=== PATIENT | male | born 1985 | race Caucasian/White ===

== ENCOUNTER 2019-12-26 14:47 | Emergency (ER) | payer OTHER, BC ==
--- NOTE | 2019-12-26 15:00 | EDM.PDOC ---
ED HPI GENERAL MEDICAL PROBLEM - General Chief Complaint: Lower Extremity Injury/Pain Stated Complaint: HIT WITH A METAL POLE RIGH SIDE/HIP AREA Time Seen by Provider: 12/26/19 14:55 Source of Information: Reports: Patient, RN, RN Notes Reviewed History Limitations: Reports: No Limitations - History of Present Illness INITIAL COMMENTS - FREE TEXT/NARRATIVE: Pt presents to ER with c/o large bruise and pain to the right side abdomen and hip. Pt states he was working drilling metal pole on a drill press when the bit caught and twisted the pole hitting him in the right lower abdomen and right hip. Pt denies any other injury. Onset: Today, Sudden Duration: Constant Location: Reports: Abdomen, Lower Extremity, Right Quality: Reports: Ache Severity: Severe Improves with: Reports: None Worsens with: Reports: Movement Associated Symptoms: Reports: No Other Symptoms Right Hip Pain Score (Numeric/FACES): 10 - Related Data Allergies Allergy/AdvReac Type Severity Reaction Status Date / Time No Known Allergies Allergy Verified 12/26/19 14:57 Home Meds: Home Meds Omeprazole 20 mg PO DAILY 12/26/19 [History] Past Medical History - Past Health History Medical/Surgical History: Denies Medical/Surgical History Social & Family History - Family History Family Medical History: Noncontributory - Living Situation & Occupation Occupation: Employed Review of Systems - Review of Systems Review Of Systems: Comprehensive ROS is negative, except as noted in HPI. ED EXAM, GENERAL - Physical Exam Exam: See Below Exam Limited By: No Limitations General Appearance: Alert, WD/WN, No Apparent Distress Throat/Mouth: Normal Inspection Head: Atraumatic, Normocephalic Neck: Normal Inspection, Non-Tender, Full Range of Motion Respiratory/Chest: No Respiratory Distress, Lungs Clear, Normal Breath Sounds, No Accessory Muscle Use, Chest Non-Tender Cardiovascular: Normal Peripheral Pulses GI/Abdominal: Normal Bowel Sounds, Soft, Pelvis Stable, Other (Hematoma right lateral abdominal wall) (Male) Exam: Deferred Rectal (Males) Exam: Deferred Back Exam: Normal Inspection, Full Range of Motion, CVA Tenderness (R). No: CVA Tenderness (L), Vertebral Tenderness Extremities: Normal Range of Motion, No Pedal Edema, Normal Capillary Refill, Other (Rt hip contusion/hematoma) Neurological: Alert, Oriented, No Motor/Sensory Deficits Psychiatric: Normal Affect, Normal Mood Skin Exam: Warm, Dry, Intact Course - Vital Signs Last Recorded V/S: Last Vital Signs Temp 98.5 F 12/26/19 14:54 Pulse 74 12/26/19 14:54 Resp 18 12/26/19 14:54 BP 116/77 12/26/19 14:54 Pulse Ox 99 12/26/19 14:54 - Orders/Labs/Meds Orders: Active Orders 24 hr Category Date Time Status Peripheral IV Care [RC] . DIRECTED Care 12/26/19 15:10 Active Abdomen Pelvis w Cont [CT] Stat Exams 12/26/19 15:14 Taken Sodium Chloride 0.9% [Saline Flush] Med 12/26/19 15:07 Active 10 ml FLUSH ASDIRECTED PRN Ice Pack [Ice Therapy] [OM.PC] Routine Oth 12/26/19 15:10 Ordered Peripheral IV Insertion Adult [OM.PC] Stat Oth 12/26/19 15:08 Ordered Medication Orders Sodium Chloride (Saline Flush) 10 ml FLUSH ASDIRECTED PRN PRN Reason: Keep Vein Open Last Admin: 12/26/19 16:06 Dose: 10 ml Documented by: KYLIE Labs: Laboratory Tests 12/26/19 12/26/19 12/26/19 Range/Units 15:10 15:18 15:18 WBC 9.5 (5.0-10.0) 10^3/uL RBC 4.88 (4.6-6.2) 10^6/uL Hgb 14.5 (14.0-18.0) g/dL Hct 41.9 (40.0-54.0) % MCV 85.9 (80-100) fL MCH 29.7 (27.0-34.0) pg MCHC 34.6 (33.0-35.0) g/dL Plt Count 314 (150-450) 10^3/uL Neut % (Auto) 69.7 (42.2-75.2) % Lymph % (Auto) 22.3 (20.5-50.1) % [place] % (Auto) 6.0 (2-8) % Eos % (Auto) 1.8 (1.0-3.0) % Baso % (Auto) 0.2 (0.0-1.0) % PT 10.1 (9.0-12.0) SEC INR 1.1 (0.9-1.2) APTT 23.6 (22.0-34.0) SEC Sodium (136-145) mmol/L Potassium (3.5-5.1) mmol/L Chloride (98-107) mmol/L Carbon Dioxide (21-32) mmol/L Anion Gap (7-13) mEq/L BUN (7-18) mg/dL Creatinine (0.70-1.30) mg/dL Est Cr Clr Drug Dosing mL/min Estimated GFR (MDRD) BUN/Creatinine Ratio (No establ ref range) Glucose (74-99) mg/dL Calcium (8.5-10.1) mg/dL Total Bilirubin (0.2-1.0) mg/dL AST (15-37) U/L ALT (16-63) U/L Alkaline Phosphatase (46-116) U/L Total Protein (6.4-8.2) g/dL Albumin (3.4-5.0) g/dL Globulin Albumin/Globulin Ratio Urine Color Yellow (YELLOW) Urine Appearance Slightly cloudy (CLEAR) Urine pH 6.0 (5.0-9.0) Ur Specific [place] 1.025 (1.005-1.030) Urine Protein Trace H (NEGATIVE) Urine Glucose (UA) Negative (NEGATIVE) Urine Ketones Negative (NEGATIVE) Urine Occult Blood Negative (NEGATIVE) Urine Nitrite Negative (NEGATIVE) Urine Bilirubin Negative (NEGATIVE) Urine Urobilinogen 0.2 (0.2-1.0) mg/dL Ur Leukocyte Esterase Negative (NEGATIVE) Urine RBC 0-5 /HPF Urine WBC 0-5 (0-5/HPF) /HPF Ur Epithelial Cells Few (NOT SEEN) /HPF Urine Bacteria Rare (0-FEW/HPF) /HPF Urine Mucus Moderate H (NOT SEEN) /LPF 12/26/19 Range/Units 15:18 WBC (5.0-10.0) 10^3/uL RBC (4.6-6.2) 10^6/uL Hgb (14.0-18.0) g/dL Hct (40.0-54.0) % MCV (80-100) fL MCH (27.0-34.0) pg MCHC (33.0-35.0) g/dL Plt Count (150-450) 10^3/uL Neut % (Auto) (42.2-75.2) % Lymph % (Auto) (20.5-50.1) % [place] % (Auto) (2-8) % Eos % (Auto) (1.0-3.0) % Baso % (Auto) (0.0-1.0) % PT (9.0-12.0) SEC INR (0.9-1.2) APTT (22.0-34.0) SEC Sodium 139 (136-145) mmol/L Potassium 3.9 (3.5-5.1) mmol/L Chloride 102 (98-107) mmol/L Carbon Dioxide 28 (21-32) mmol/L Anion Gap 12.9 (7-13) mEq/L BUN 18 (7-18) mg/dL Creatinine 1.10 (0.70-1.30) mg/dL Est Cr Clr Drug Dosing 102.68 mL/min Estimated GFR (MDRD) > 60 BUN/Creatinine Ratio 16.4 (No establ ref range) Glucose 105 H (74-99) mg/dL Calcium 8.7 (8.5-10.1) mg/dL Total Bilirubin 0.4 (0.2-1.0) mg/dL AST 29 (15-37) U/L ALT 51 (16-63) U/L Alkaline Phosphatase 55 (46-116) U/L Total Protein 7.8 (6.4-8.2) g/dL Albumin 4.5 (3.4-5.0) g/dL Globulin 3.3 Albumin/Globulin Ratio 1.4 Urine Color (YELLOW) Urine Appearance (CLEAR) Urine pH (5.0-9.0) Ur Specific [place] (1.005-1.030) Urine Protein (NEGATIVE) Urine Glucose (UA) (NEGATIVE) Urine Ketones (NEGATIVE) Urine Occult Blood (NEGATIVE) Urine Nitrite (NEGATIVE) Urine Bilirubin (NEGATIVE) Urine Urobilinogen (0.2-1.0) mg/dL Ur Leukocyte Esterase (NEGATIVE) Urine RBC /HPF Urine WBC (0-5/HPF) /HPF Ur Epithelial Cells (NOT SEEN) /HPF Urine Bacteria (0-FEW/HPF) /HPF Urine Mucus (NOT SEEN) /LPF Meds: Medications Generic Name Dose Route Start Last Admin Trade Name Freq PRN Reason Stop Dose Admin Sodium Chloride 10 ml 12/26/19 15:07 12/26/19 16:06 Saline Flush FLUSH 10 ml ASDIRECTED PRN Administration Keep Vein Open Discontinued Medications Generic Name Dose Route Start Last Admin Trade Name Liliya PRN Reason Stop Dose Admin Hydromorphone HCl 1 mg 12/26/19 15:10 12/26/19 15:23 Dilaudid IVPUSH 12/26/19 15:11 1 mg ONETIME ONE Administration Sodium Chloride 1,000 mls @ 999 mls/hr 12/26/19 15:14 12/26/19 15:44 Normal Saline IV 12/26/19 16:14 999 mls/hr .BOLUS ONE Administration Iopamidol 100 ml 12/26/19 15:11 12/26/19 15:45 Isovue-300 (61%) IVPUSH 12/26/19 15:12 75 ml ONETIME ONE Administration Ondansetron HCl 4 mg 12/26/19 15:11 12/26/19 15:22 Zofran IV 12/26/19 15:12 4 mg ONETIME ONE Administration - Radiology Interpretation Free Text/Narrative:: CT Abd/Pelvis: large Rt abd. wall hematoma, see Rad. report. - Re-Assessments/Exams Free Text/Narrative Re-Assessment/Exam: 12/26/19 16:[address] Morales, who came to ER and reviewed the CT. Dr. Morales recommends conservative care with ice pack, pain control and out patient f/u with PCP. Departure - Departure Time of Disposition: 16:21 Disposition: Home, Self-Care 01 Condition: Good Clinical Impression: Encounter for assessment of work-related causation of injury Traumatic hematoma of abdominal wall Qualifiers: Encounter type: initial encounter Qualified Code(s): S30.1XXA - Contusion of abdominal wall, initial encounter - Discharge Information *PRESCRIPTION DRUG MONITORING PROGRAM REVIEWED*: No *COPY OF PRESCRIPTION DRUG MONITORING REPORT IN PATIENT ADITYA: No Instructions: Blunt Abdominal Trauma, Contusion Forms: ED Department Discharge Additional Instructions: Rx: Hydrocodone APAP 5mg/325mg Ice pack to area of pain and swelling. Ice on for 10 minutes every 30 to 60 minutes while awake for the next 2 days. Light activity as tolerated. Follow up in clinic with your primary doctor tomorrow for recheck. Inform you doctor that the ER had Dr. Morales consult regarding your injury. Sepsis Event Note (ED) - Focused Exam Vital Signs: Vital Signs Temp Pulse Resp BP Pulse Ox 12/26/19 14:54 98.5 F 74 18 116/77 99 - My Orders Last 24 Hours: My Active Orders 12/26/19 15:07 Sodium Chloride 0.9% [Saline Flush] 10 ml FLUSH ASDIRECTED PRN 12/26/19 15:08 Peripheral IV Insertion Adult [OM.PC] Stat 12/26/19 15:10 Peripheral IV Care [RC] . DIRECTED Ice Pack [Ice Therapy] [OM.PC] Routine 12/26/19 15:14 Abdomen Pelvis w Cont [CT] Stat - Assessment/Plan Last 24 Hours: My Active Orders 12/26/19 15:07 Sodium Chloride 0.9% [Saline Flush] 10 ml FLUSH ASDIRECTED PRN 12/26/19 15:08 Peripheral IV Insertion Adult [OM.PC] Stat 12/26/19 15:10 Peripheral IV Care [RC] . DIRECTED Ice Pack [Ice Therapy] [OM.PC] Routine 12/26/19 15:14 Abdomen Pelvis w Cont [CT] Stat
[2019-12-26] MEDS ORDERED: Sodium Chloride 0.9% 10 ML Syringe FLUSH PRN (15:07)
[2019-12-26] MEDS ORDERED: HYDROmorphone 1 MG/ML Syringe IVPUSH ONE (15:10)
[2019-12-26] MEDS ORDERED: Ondansetron 4 MG/2 ML SDV IV ONE (15:11)
[2019-12-26] MEDS ORDERED: Iopamidol 612 MG/ML 100 ML Bottle IVPUSH ONE (15:11)
[2019-12-26] MEDS ORDERED: Sodium Chloride 0.9% 1,000 ML IV ONE (15:14)
[2019-12-26 15:47] LABS: PTT,PARTIAL THROMBOPLSTIN TIME 23.6 SEC (22.0-34.0)
[2019-12-26 15:50] LABS: ANION GAP 12.9 mEq/L (7-13); CHLORIDE,CL 102 mmol/L (98-107); SODIUM,NA 139 mmol/L (136-145)
--- NOTE | 2019-12-26 16:21 | CT ---
EXAMINATION: Abdomen Pelvis w Cont SEX: Male AGE: 34 years CLINICAL HISTORY: 34-year-old 199 pound male with blunt trauma to the right abdomen (laterally). Scan technique: Volume acquisition of data emergency CT scan of the abdomen and pelvis obtained during intravenous administration 75 cc nonionic Isovue contrast 3 cc/s via injector while patient was lying supine on the Siemens multislice scanner [place], [place]. All data archived in the PACS system for storage, reformatting axial/sagittal/coronal planes and study. Interpretation: Abnormal. 1. Asymmetric large extraperitoneal, subcutaneous HEMATOMA laterally left abdomen that measures 3.1 cm W x 10.2 cm AP x 11.2 cm L with signs of small persistent central bleeding (contrast). 2. No skin laceration or foreign bodies. No subcutaneous emphysema. 3. Gallbladder, liver, stomach, spleen, pancreas and adrenal glands anatomically correct. No visceral lacerations. Normal reniform size, axis and configuration. No renal cortical mass, nephrolithiasis or stones. 4. No abdominal or pelvic mass lesion, inflammatory "dirty" peritoneal fat, intraperitoneal hematoma, signs of mechanical bowel obstruction, ascites or free intraperitoneal air. Scattered diverticula left colon. 5. Normal cardiac silhouette. No pericardial or pleural effusions. Lung bases clear. 6. Normal caliber aortoiliac vessels. Lumbar spine unremarkable. CONCLUSION: Diverticulosis colon. Large hematoma, laterally, right abdomen.
== END 2019-12-26 16:39 | disposition home or self-care (01) ==
LOC: DL.ED 14:47
DX: S30.1XXA Contusion of abdominal wall, initial encounter (principal); Z79.899 Other long term (current) drug therapy; W22.8XXA Striking against or struck by other objects, initial encounter; Y92.89 Other specified places as the place of occurrence of the external cause; Y99.0 Civilian activity done for income or pay
CPT/HCPCS: 36415; 74177; 80053; 81001; 85025; 85610; 85730; 96374; 96375; 99284; J1170; J2405; J7030; Q9967